=== PATIENT | female | born 1945 | race Caucasian/White ===

== ENCOUNTER 2016-08-05 11:24 | Emergency (ER) | payer OTHER ==
[~2016-08-05] VITALS: Ht 167.6 cm; Wt 75.0 kg
[~2016-08-05 11:24] MED LIST: ADVIL200 M1 PO; ALEVE220 MG PO; CYCLOBENZAPRINE10 MG PO; DEMEROL; DEMEROL IV; DIAZEPAM5 MG/1 ML IV; LEVOTHYROXINE100 MCG PO; MEPERIDINE HCL PO; MOTRIN800 MG PO; PHENERGAN25 MG/ML IV; PROMETHAZINE HC50 M1 PO; SYNTHROID75 MCG PO; TIZANIDINE HCL4 M1 PO; TRAZODONE HCL150 MG PO; TRAZODONE HCL300 MG PO
[2016-08-05 15:08] VITALS: BP 134/61
== END 2016-08-05 15:12 | disposition home or self-care (01) ==
LOC: EME 11:24
DX: G43.909 Migraine, unspecified, not intractable, without status migrainosus (principal); F17.200 Nicotine dependence, unspecified, uncomplicated; Z88.6 Allergy status to analgesic agent
CPT/HCPCS: 99281; 99285; J2175; J2550; J3360

== ENCOUNTER 2016-09-26 12:02 | Emergency (ER) | payer OTHER ==
[~2016-09-26] VITALS: Ht 167.6 cm; Wt 75.9 kg
[2016-09-26 16:42] VITALS: BP 152/78
== END 2016-09-26 16:45 | disposition home or self-care (01) ==
LOC: EME 12:02
DX: R51 Headache (principal); Z98.1 Arthrodesis status; F17.200 Nicotine dependence, unspecified, uncomplicated
CPT/HCPCS: 99281; 99284; J2175; J2550; J3360; J7040

== ENCOUNTER 2016-09-27 10:21 | Emergency (ER) | payer OTHER ==
[~2016-09-27] VITALS: Ht 167.6 cm; Wt 76.5 kg
[2016-09-27 15:19] VITALS: BP 146/71
== END 2016-09-27 15:37 | disposition home or self-care (01) ==
LOC: EME 10:21
DX: G43.909 Migraine, unspecified, not intractable, without status migrainosus (principal); Z72.0 Tobacco use; Z88.8 Allergy status to other drugs, medicaments and biological substances; Z91.030 Bee allergy status; Z91.048 Other nonmedicinal substance allergy status; Z98.1 Arthrodesis status
CPT/HCPCS: 99281; 99284; J2175; J2550; J3360; J7030